=== PATIENT | male | born 1990 | race Caucasian/White ===

== ENCOUNTER 2020-09-29 03:54 | Emergency (ER) | payer BC ==
[~2020-09-29] VITALS: Ht 177.8 cm; Wt 68.0 kg
--- NOTE | 2020-09-29 04:00 | NUR ---
Patient came in the ED for medication refill. Patient is on zyprexa 10mg one po daily,pt reports. Patient does not have a psychiatrist at this time, ran out of medication. Pt states he knows to follow up with a psychiatrist. pt is calm and cooperative. Ax04.
[2020-09-29] MEDS ORDERED: ZYPREXA10 MG ORAL (04:08)
--- NOTE | 2020-09-29 04:13 | Emergency Room Report ---
History of Present Illness General Chief Complaint: Medication Refill Source: Patient Present Illness HPI 30-year-old male with a history of schizophrenia and bipolar disorder on Zyprexa here for medication refill. Patient is homeless. He is requesting a refill of Zyprexa. Takes 10 mg daily. Has not taken in several days. He ran out of his medication and has not seen a physician to refill his prescription. Says that he is going to see a psychiatrist later today. Denies homicidal or suicidal ideation or hallucinations. Denies drug or alcohol use. Allergies: Coded Allergies: PENICILLINS (Verified Allergy, Unknown, 09/29/20) SULFA (SULFONAMIDE ANTIBIOTICS) (Verified Allergy, Unknown, 09/29/20) COVID-19 Screening Contact w/high risk pt: No Experienced COVID-19 symptoms?: No COVID-19 Testing performed FUR FARMER: No Nursing Documentation-[facility] Past Medical History: No History, Except For Review of Systems All Other Systems: negative except mentioned in HPI Physical Exam Vital Signs Date Time Temp Pulse Resp B/P (MAP) Pulse Ox O2 Delivery O2 Flow Rate FiO2 09/29/20 03:57 98.1 88 20 126/74 (91) 100 Room Air Sp02 EP Interpretation: reviewed, normal General Appearance: no apparent distress, alert, non-toxic Head: normocephalic, atraumatic Eyes: bilateral eye normal inspection, bilateral eye PERRL ENT: hearing grossly normal, normal pharynx, no angioedema, normal voice Neck: full range of motion, supple/symm/no masses Respiratory: chest non-tender, lungs clear, normal breath sounds, speaking full sentences Cardiovascular #1: regular rate, rhythm, no edema Cardiovascular #2: 2+ carotid (R), 2+ carotid (L), 2+ radial (R), 2+ radial (L), 2+ dorsalis pedis (R), 2+ dorsalis pedis (L) Gastrointestinal: normal bowel sounds, non tender, soft, non-distended, no guarding, no rebound Rectal: deferred Genitourinary: normal inspection, no CVA tenderness Musculoskeletal: back normal, normal range of motion, gait/station normal, non- tender Neurologic: alert, motor strength/tone normal, oriented x3, sensory intact, responsive, speech normal Psychiatric: judgement/insight normal, memory normal, mood/affect normal, no suicidal/homicidal ideation Lymphatic: no adenopathy Medical Decision Making Homeless Attestation Patient has been medically screened and is stable for outpatient follow up Diagnostic Impression: Primary Impression: Encounter for medication refill ER Course 30-year-old male requesting refill of Zyprexa. Patient was in no acute distress and denied any homicidal or suicidal ideation or hallucinations. Takes 10 mg of Zyprexa daily and has not taken in several days since he ran out of his medication. Has not seen a physician to refill his medication. He was given 1 dose of Zyprexa in the emergency department and a prescription for 7 days worth of Zyprexa. Says that he will follow-up with a psychiatrist in the next 24 hours. Says that he has seen a psychiatrist in the past and he is going to follow-up with that psychiatrist. Discharged in stable condition. Last Vital Signs Date Time Temp Pulse Resp B/P (MAP) Pulse Ox O2 Delivery O2 Flow Rate FiO2 09/29/20 03:57 98.1 88 20 126/74 (91) 100 Room Air Disposition: OTH-HOMELESS Condition: Stable Scripts Olanzapine* (ZYPREXA*) 10 Mg Tablet 10 MG ORAL DAILY for 7 Days, TAB 0 Refills Prov: Troy Caldera M.D. 09/29/20 Referrals: [facility] + [facility] Psych ER - Peds ER - [facility] Intake Hotline - [facility] - [facility] Patient Instructions: Medicine Refill at the Emergency Department Troy Caldera M.D. Sep 29, 2020 04:13
--- NOTE | 2020-09-29 04:15 | NUR ---
ER DISCHARGE NOTE: Patient is cleared to be discharged per ERMD, pt is aox3, disoriented to place, on room air, with stable vital signs. pt was given dc and prescription instructions, pt was able to verbalize understanding, pt id band removed. pt is able to ambulate with steady gait.
[2020-09-29 04:18] VITALS: BP 126/74
== END 2020-09-29 04:30 | disposition other institution (70) ==
LOC: EMR 04:20
DX: Z76.0 Encounter for issue of repeat prescription (principal); F20.9 Schizophrenia, unspecified; F31.9 Bipolar disorder, unspecified; Z59.0 Homelessness; Z88.0 Allergy status to penicillin; Z88.2 Allergy status to sulfonamides
CPT/HCPCS: 99282